=== PATIENT | female | born 1955 | race Caucasian/White ===

== ENCOUNTER 2018-03-11 10:35 | Outpatient (CLI) | payer BC ==
--- NOTE | 2018-03-11 13:04 | RAD ---
FOUR VIEWS LUMBAR SPINE: History: Spondylolisthesis lumbar region. Technique: AP, lateral, flexion and extension views of the lumbar spine obtained. FINDINGS: There are five non-rib bearing lumbar vertebrae. Disc spaces are well maintained. No evidence of frac tures, subluxations, or bony lesions seen. IMPRESSION: Unremarkable four views lumbar spine with no evidence of wilver or retrolisthesis seen. POS: JENNIFER
== END 2018-03-11 10:36 | disposition home or self-care (01) ==
LOC: RAD 10:35
PROVIDERS: ATTEND Specialist
DX: M43.16 Spondylolisthesis, lumbar region (principal)
CPT/HCPCS: 72120

== ENCOUNTER 2018-03-19 13:26 | Outpatient (CLI) | payer BC ==
--- NOTE | 2018-03-19 14:42 | CT ---
CT LUMBAR SPINE PERFORMED WITHOUT CONTRAST ENHANCEMENT: History: Chronic back pain radiating to left hip for years but has recently gotten worse. FINDINGS: The vertebral bodies are normal in height. Disc spaces are all relatively well preserved. No significant periaortic adenopathy. A punctate nonobstructing mid to lower pole left renal calculus is incidentally noted. T12-L1: Unremarkable. L1-2: Unremarkable. L2-3: The canal is borderline mildly narrowed with some disc bulging as well as facet and ligamentous hypertrophic changes. L3-4: Disc bulge, facet and ligamentous hypertrophic changes associated with a moderate degree of can al narrowing. No foraminal stenosis. L4-5: More severe canal narrowing at this level. There is a very minimal spondylolisthesis with promi nent degenerative facet changes. No significant foraminal stenosis. L5-S1: Posterior osteophytic change at this level. There is more right sided. The canal showed some m ild stenosis and there is no significant foraminal narrowing. IMPRESSION: Multilevel canal stenosis. POS: [facility]
== END 2018-03-19 13:27 | disposition home or self-care (01) ==
LOC: SCSCT 13:26
PROVIDERS: ATTEND Specialist
DX: M48.07 Spinal stenosis, lumbosacral region (principal); M48.061 Spinal stenosis, lumbar region without neurogenic claudication
CPT/HCPCS: 72131

== ENCOUNTER 2019-07-15 07:12 | Day surgery (SDC) | payer BC ==
[2019-07-14 12:23] VITALS: BMI 27.4
--- NOTE | 2019-07-15 09:55 | CT ---
CT lumbar spine with contrast: HISTORY: Low back pain and radiation of pain into right lower extremity. COMPARISON: Noncontrast CT lumbar spine on 03/19/2018 FINDINGS: Punctate calcification is again seen in the midportion right kidney. This may represent a vascular ca lcification as opposed to a nonobstructing renal calculus. However, a few punctate nonobstructing left renal calculi are visualized and were also seen on prior study. Vascular calcifications are seen in the abdominal aorta and involving the iliac arteries. No fracture or subluxation is seen involving the lumbar spine L1-2: No significant central canal or neural foraminal narrowing is seen. L2-3: Mild disc osteophyte complex with mild facet hypertrophic changes and ligamentous thickening. M ild narrowing of the central spinal canal is present. Neural foramina are patent. L3-4: Broad-based disc osteophyte complex is present with facet hypertrophic changes and mild ligamen tous thickening. Mild narrowing of the central spinal canal is present. Mild left and minimal right-sided neural foraminal narrowing are present. L4-5: Mild loss of intervertebral disc height is again present. There is a broad-based disc osteophyt e complex with moderate facet hypertrophic changes. Mild ligamentous thickening. Moderate central canal narrowing is present; the degree of narrowing is overall similar to prior exam. No significant neural foraminal narrowing is present at this level. L5-S1: Loss of intervertebral disc space height. Minimal disc osteophyte complex is present, with sli ghtly greater degree of posterior osteophyte formation centrally and on the right. No significant central canal or neural foraminal narrowing is present. There is partial sacralization of the L5 vert ebral body on the left with pseudoarticulation of the left lateral mass of L5 with S1. IMPRESSION: Multilevel disc degenerative changes similar to noncontrast study in 2019. Greatest degree of central canal narrowing is at the L4-5 level with there is moderate central canal narrowing. No high-grade foraminal narrowing is seen at any level.
[2019-07-15] MEDS ORDERED: Iopamidol-M 200 41% 20 ML VIAL ONE (11:36)
--- NOTE | 2019-07-15 12:24 | RAD ---
PROCEDURE: XR Myelogram Lumbar Spine PROVIDED CLINICAL HISTORY: Spinal stenosis with neurogenic claudication. Patient states back pain with pain extending into right lower extremity. COMPARISON: None TECHNIQUE: After informed consent was obtained, the patient was placed on the fluoroscopy table in the prone pos ition. Area overlying the L2-3 interspace was marked, and the area was meticulously prepped and draped in usual sterile fashion. Skin and subcutaneous tissues were infiltrated with buffered 1% lido romana for local anesthesia. A 22-gauge spinal needle was advanced into the central canal. The inner stylette was removed, and there was a return of clear cerebral spinal fluid. Approximately 8 mL of Is ovue-M 200 contrast was instilled into the thecal sac. The inner stylette was replaced, and the needle was removed. Hemostasis was achieved with direct pressure, and a dry sterile dressing was placed. The patient tole rated the procedure well and without immediate complication. Patient was transported to CT for additional imaging of the lumbar spine. Fluoroscopy: Time-0.5 minutes Dose-71.7 mcg meter squared IMPRESSION: 1. Technically successful lumbar myelogram. 2. [facility] [employer] views of the lumbar spine demonstrate no fracture of the lumbar spine. Facet degenerative ch anges are seen in the lower lumbar spine. 3. Please see CT lumbar spine for further details.
[2019-07-15 12:34] VITALS: BP 180/97; TEMP 97.2
== END 2019-07-15 09:50 | disposition home or self-care (01) ==
LOC: RAD 07:12
PROVIDERS: ATTEND Surgery
PROC: B01B1ZZ Fluoroscopy of Spinal Cord using Low Osmolar Contrast (ICD-10-PCS; principal; 2019-07-15)
DX: M48.062 Spinal stenosis, lumbar region with neurogenic claudication (principal); M51.36 Other intervertebral disc degeneration, lumbar region; F41.9 Anxiety disorder, unspecified; J45.909 Unspecified asthma, uncomplicated; Z79.51 Long term (current) use of inhaled steroids; Z79.82 Long term (current) use of aspirin; Z79.899 Other long term (current) drug therapy; Z91.011 Allergy to milk products; Z91.018 Allergy to other foods; Z91.048 Other nonmedicinal substance allergy status; Z95.0 Presence of cardiac pacemaker; Z95.2 Presence of prosthetic heart valve
CPT/HCPCS: 62304; 72132

== ENCOUNTER 2019-08-24 05:39 | Outpatient (CLI) | payer BC, OTHER ==
[2019-08-24 14:05] LABS: INR-International Normal Ratio 0.9; PTT 23.9 sec (22.9-36.1); Prothrombin Time 12.4 sec (12.0-14.7)
[2019-08-24 14:16] LABS: Hemoglobin 13.6 g/dL (12.0-16.0); Mean Corpuscular Hemoglobin 30.3 pg (27.0-31.0); Mean Corpuscular Volume 97.8 fL (78.0-98.0); Mean Platelet Volume 10.1 fL (7.4-10.4); Platelet Count 246 thou/uL (130-400); RBC Distribution Width 12.3 % (11.5-14.5); Red Blood Cell (RBC) Count 4.47 mill/uL (4.20-5.40); White Blood Cell (WBC) Count 6.5 thou/uL (4.8-10.8)
[2019-08-24 14:35] LABS: Anion Gap 13 mmol/L (10-20); BUN (Urea Nitrogen) 22 mg/dL (9.8-20.1); Calc. Creatinine Clearance 0 mL/min (70-130); Calcium 9.6 mg/dL (7.8-10.44); Carbon Dioxide 26 mmol/L (23-31); Chloride 105 mmol/L (98-107); Estimated GFR-MDRD 55; Glucose 101 mg/dL (80-115); Potassium 4.9 mmol/L (3.5-5.1); Sodium 139 mmol/L (136-145)
--- NOTE | 2019-08-24 15:56 | EKG ---
Test Reason : Blood Pressure : / mmHG Vent. Rate : 070 BPM Atrial Rate : 070 BPM P-R Int : 158 ms QRS Dur : 166 ms QT Int : 466 ms P-R-T Axes : 057 -78 089 degrees QTc Int : 503 ms AV sequential or dual chamber electronic pacemaker No previous ECGs available Confirmed by DR. Pedro Pablo VACA MD ([id number]) on 08/24/2019 3:56:02 PM Referred By: Confirmed By:DR. Pedro Pablo VACA MD
[2019-08-25 12:44] LABS: SARS-CoV-2 MS2 Positive; SARS-CoV-2 N Gene Negative; SARS-CoV-2 S Gene Negative; SARS-CoV-2 orf1ab Negative
== END 2019-08-24 05:40 | disposition home or self-care (01) ==
LOC: LABBT 05:39
PROVIDERS: ATTEND Surgery
DX: Z01.818 Encounter for other preprocedural examination (principal); Z11.59 Encounter for screening for other viral diseases; M54.16 Radiculopathy, lumbar region; M48.061 Spinal stenosis, lumbar region without neurogenic claudication
CPT/HCPCS: 80048; 85027; 85610; 85730; 87635; 93005; 93010; U0003

== ENCOUNTER 2019-08-27 05:54 | Day surgery (SDC) | payer BC ==
[2019-08-27] MEDS ORDERED: Thrombin 5000 UNITS/5 ML VIAL ONE (06:36)
[2019-08-27] MEDS ORDERED: Fentanyl 250 MCG/5 ML VIAL ONE (06:54)
[2019-08-27] MEDS ORDERED: Midazolam HCl 2 mg/2 ml Vial ONE (06:54)
[2019-08-27] MEDS ORDERED: Promethazine HCl 25 MG/ML VIAL IM PRN (09:50)
[2019-08-27] MEDS ORDERED: Morphine Sulfate 2 MG/ML SYRINGE SLOW IVP PRN (09:50)
[2019-08-27] MEDS ORDERED: Ondansetron HCl/PF 4 MG/2 ML Vial IVP PRN (09:50)
[2019-08-27] MEDS ORDERED: Acetaminophen 325 MG TAB PO PRN (10:01)
[2019-08-27] MEDS ORDERED: traMADol HCl 50 MG TAB PO PRN (10:01)
[2019-08-27] MEDS ORDERED: Bisacodyl 10 MG SUPP PR PRN (10:01)
[2019-08-27] MEDS ORDERED: Morphine 2 MG/ML VIAL SLOW IVP PRN (10:01)
[2019-08-27] MEDS ORDERED: Mag-Al 1200 mg/1200 mg/30 ML UDCUP PO PRN (10:01)
[2019-08-27] MEDS ORDERED: HYDROcodone/Acetaminophen 7.5/325 mg Tablet PO PRN (10:01)
[2019-08-27] MEDS ORDERED: Fleet Enema 133 ML BOT PR PRN (10:01)
[2019-08-27] MEDS ORDERED: Acetaminophen/Codeine 30-300mg Tablet PO PRN (10:01)
[2019-08-27] MEDS ORDERED: Milk Of Magnesia 30 ML UDCUP PO PRN (10:01)
[2019-08-27] MEDS ORDERED: Ondansetron PF 4 MG/2 ML Vial IVP PRN (10:01)
[2019-08-27] MEDS ORDERED: tiZANidine HCl 4 MG TAB PO PRN (10:01)
[2019-08-27] MEDS ORDERED: diphenhydrAMINE 25 MG CAP PO PRN (10:01)
[2019-08-27] MEDS ORDERED: Fentanyl 100 MCG/2 ML VIAL ONE ×2 (10:15→10:31)
[2019-08-27] MEDS ORDERED: Diazepam 5 MG TAB PO PRN (10:23)
[2019-08-27] MEDS ORDERED: Promethazine HCl 25 MG/ML VIAL ONE (10:32)
--- NOTE | 2019-08-27 10:37 | OP ---
DATE OF PROCEDURE: 08/27/2019 LOCATION: OR 5. [employer] INSPECTOR: Daya Steen PA-C PREPROCEDURE DIAGNOSIS: Lumbar stenosis with neurogenic claudication. POSTPROCEDURE DIAGNOSIS: Lumbar stenosis with neurogenic claudication. PROCEDURES PERFORMED: L3-L4, L4-L5 laminectomies, partial facetectomies, foraminotomies. DESCRIPTION OF PROCEDURE: After informed consent was obtained from the patient, the patient was brought to the OR. Proper patient, pause, and identification were carried out. She was placed under excellent general endotracheal anesthesia and positioned prone on the OR table. All appropriate points were padded. We identified the L3 through L5 dorsal spines. Linear darren was made. This region was sterilely cleansed, prepared, and draped. Proper patient, pause, and identification were carried out. The wound was then opened with combination of sharp, monopolar, and blunt dissection. The L3, L4, L5 dorsal spines and lamina were exposed. Localization film confirmed our area of interest. We then performed L3-L4, L4-L5 laminectomies, partial facetectomies, foraminotomies, excellent decompression of common dural tube and nerve roots. Copious irrigation occurred throughout as did maximizing hemostasis. The wound was closed in anatomic layers following sprinkling of vancomycin powder. The patient emerged from anesthesia. Job ID: [id number]
[2019-08-27] MEDS ORDERED: Glycopyrrolate 0.2 MG/ML 5 ML SYRINGE ONE (11:47)
[2019-08-27] MEDS ORDERED: diphenhydrAMINE 50 MG/ML VIAL ONE (11:47)
[2019-08-27] MEDS ORDERED: PROPOFOL 200 MG/20 ML VIAL ONE (11:47)
[2019-08-27] MEDS ORDERED: Ondansetron PF 4 MG/2 ML Vial ONE (11:47)
[2019-08-27] MEDS ORDERED: Rocuronium Bromide 10 MG/ML (10ML VIAL) ONE (11:47)
[2019-08-27] MEDS ORDERED: Dexamethasone 20 MG/5 ML VIAL ONE (11:47)
[2019-08-27] MEDS ORDERED: PHENYLEPHRINE-NS 100 MCG/ML 10 ML SYRINGE ONE (11:47)
[2019-08-27 13:54] VITALS: BMI 28.2
[2019-08-27] MEDS: CEFAZOLIN 2 GM in Premix Bag 1 BAG IVPB SCH ×2 (15:12→22:54)
[2019-08-28] MEDS: Sodium Chloride 0.9% 1,000 ML IV SCH ×2 (02:59→03:23)
[2019-08-28] MEDS ORDERED: Cyanocobalamin (Vitamin B-12) 1,000 MCG TAB PO SCH (09:00)
[2019-08-28] MEDS ORDERED: Lisinopril 10 MG TAB PO SCH (09:00)
[2019-08-28] MEDS ORDERED: Fluticasone Propionate Nasal Spray 16 gm Bottle NASAL SCH (09:00)
[2019-08-28] MEDS ORDERED: MAGNESIUM GLYCINATE PO SCH (09:00)
[2019-08-28] MEDS ORDERED: Calcium Carbonate 600 MG + Vit D TAB PO SCH (09:00)
[2019-08-28] MEDS ORDERED: Meclizine HCl 25 MG TAB PO SCH (09:00)
[2019-08-28] MEDS ORDERED: Loratadine 10 MG TAB PO SCH (09:00)
[2019-08-28 11:27] VITALS: BP 131/61; TEMP 97.7
--- NOTE | 2019-08-28 11:51 | PRG ---
DATE OF SERVICE: 08/28/2019 Ms. Manning is doing well this morning with resolution of her leg pain. She has mobilized with excellent strength. We went over intra and postoperative issues. She will be discharged. Job ID: [id number]
== END 2019-08-28 12:20 | disposition home or self-care (01) ==
LOC: SDC 05:54 → SURG B 11:09 → SDC 08-28 12:20
PROVIDERS: ATTEND Surgery
PROC: 01NB0ZZ Release Lumbar Nerve, Open Approach (ICD-10-PCS; principal; 2019-08-27)
DX: M48.062 Spinal stenosis, lumbar region with neurogenic claudication (principal); M54.16 Radiculopathy, lumbar region; Z79.82 Long term (current) use of aspirin; Z79.899 Other long term (current) drug therapy; Z91.011 Allergy to milk products; Z91.048 Other nonmedicinal substance allergy status; Z95.0 Presence of cardiac pacemaker; Z95.2 Presence of prosthetic heart valve
CPT/HCPCS: 76000; J0690; J1100; J1200; J2250; J2405; J2550; J2704; J3010; J3370

== ENCOUNTER 2022-12-17 17:00 | Outpatient (CLI) | payer BC | END 2022-12-17 17:01 | disposition home or self-care (01) | LOC: SLEEPLAB 17:00 | PROVIDERS: ATTEND Internal Medicine Critical Care Medicine | DX: G47.33 Obstructive sleep apnea (adult) (pediatric) (principal); R06.83 Snoring | CPT/HCPCS: 95800 ==

== ENCOUNTER 2023-08-15 12:50 | Outpatient (CLI) | payer BC | END 2023-08-15 12:51 | disposition home or self-care (01) | LOC: CT 12:50 | PROVIDERS: ATTEND Nurse Practitioner Family | DX: R10.9 Unspecified abdominal pain (principal); N20.0 Calculus of kidney | CPT/HCPCS: 74176 ==